=== PATIENT | male | born 1990 | race Caucasian/White ===

== ENCOUNTER 2017-02-10 10:01 | Emergency (ER) | payer OTHER ==
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
[2017-02-10] MEDS ORDERED: fentaNYL 100 MCG/2 ML INJ IVP ONE ×3 (10:43→11:19)
[2017-02-10] MEDS ORDERED: ONDANSETRON 4 MG/2 ML VIAL IVP ONE (10:44)
[2017-02-10] MEDS ORDERED: LIDOCAINE 2% JELLY 5 ML TUBE ONE (11:54)
[2017-02-10] MEDS ORDERED: IBUPROFEN 800 MG TAB PO ONE (12:00)
[2017-02-10 12:54] VITALS: BP 152/99; PULSE 60; O2SAT 93
[2017-02-10 14:09] VITALS: RESP 16; TEMP 98.1
== END 2017-02-10 13:24 | disposition home or self-care (01) ==
PROC: 0SSNXZZ Reposition Left Metatarsal-Phalangeal Joint, External Approach (ICD-10-PCS; principal; 2017-02-10)
DX: S92.322A Displaced fracture of second metatarsal bone, left foot, initial encounter for closed fracture (principal); S92.332A Displaced fracture of third metatarsal bone, left foot, initial encounter for closed fracture; S93.125A Dislocation of metatarsophalangeal joint of left lesser toe(s), initial encounter; V18.0XXA Pedal cycle driver injured in noncollision transport accident in nontraffic accident, initial encounter; Y92.410 Unspecified street and highway as the place of occurrence of the external cause; Y99.8 Other external cause status; Y93.55 Activity, bike riding
CPT/HCPCS: 96365; J0690; J2405; J3010